=== PATIENT | female | born 1960 | race Two or more races ===

== ENCOUNTER 2019-11-18 16:27 | Emergency (ER) | payer MEDICARE ==
[~2019-11-18] VITALS: Ht 165.1 cm; Wt 108.9 kg
[2019-11-18 16:45] VITALS: BP 156/68
[2019-11-18] MEDS ORDERED: BENZONATATE 100 MG CAPSULE. PO ONE (16:45)
[2019-11-18] MEDS ORDERED: predniSONE 10 MG TABLET PO ONE (16:45)
--- NOTE | 2019-11-18 17:02 | RAD ---
EXAM: Chest, 2 views. HISTORY: Fever. Cough. COMPARISON: 06/15/2015. FINDINGS: 2 views of the chest are obtained. There is suspected bilateral infrahilar atelectasis. There is no consolidation, pleural effusion or pneumothorax. The heart is normal in size. IMPRESSION: Suspected bilateral infrahilar atelectasis. Electronically signed by: Liliana Henry MD (11/18/2019 4:59 PM) [place] [id number]
[2019-11-18 17:15] LABS: INFLUENZA A PATIENT NEGATIVE (NEGATIVE); INFLUENZA B PATIENT NEGATIVE (NEGATIVE)
[2019-11-18] MEDS ORDERED: IPRATRPIUM/ALBUTEROL 0.5/2.5MG 3 ML NEBU. NEB ONE (17:45)
[2019-11-18] MEDS ORDERED: BENZ100C PO (19:19)
[2019-11-18] MEDS ORDERED: PRED50TA PO (19:19)
[2019-11-18] MEDS ORDERED: ALBU2.5V8 IH (19:19)
--- NOTE | 2019-11-18 19:19 | PHYS DOC ---
Past Medical History Past Medical History: Depression, Diabetes-Type II, High Cholesterol, Hyp ertension, Kidney Stone (BABS HWANG APRN) Past Surgical History: Hysterectomy (BABS HWANG APRN) Alcohol Use: None Drug Use: None (BABS HWANG APRN) Attending Signature I have participated in the care of this patient and I have reviewed and agree with all pertinent clinical information above including history, exam, and recommendations. (DEBBI RODRIGUEZ MD) Adult General Chief Complaint Chief Complaint: FEVER HPI HPI Patient is a 59 year old female who presents to the ED today complaining of intermittent episodes of fever, productive cough, body aches and chills as well as headache for the last 2 weeks. Patient states she was seen at [facility] 2 weeks ago and was given some medications which improved her symptoms. She reports when the medications were finished her symptoms returned. Patient denies any chest pain. Denies any shortness of breath. (BABS HWANG APRN) Review of Systems Review of Systems Constitutional: Reports body aches and chills Eyes: Denies change in visual acuity, redness, or eye pain [] HENT: Denies nasal congestion or sore throat [] Respiratory: Reports cough, denies shortness of breath [] Cardiovascular: No additional information not addressed in HPI [] GI: Denies abdominal pain, nausea, vomiting, bloody stools or diarrhea [] : Denies dysuria or hematuria [] Musculoskeletal: Denies back pain or joint pain [] Integument: Denies rash or skin lesions [] Neurologic: Reports headaches, denies, focal weakness or sensory changes [] All other systems were reviewed and found to be within normal limits, except as documented in this note. (BABS HWANG APRN) Current Medications Current Medications Current Medications Medications (Trade) Dose Ordered Sig/Nito Start Time Stop Time Status Last Admin Dose Admin Albuterol/ Ipratropium (Duoneb) 3 ml 1X ONCE 11/18/19 17:45 11/18/19 17:46 DC 11/18/19 17:56 3 ML Benzonatate (Tessalon Perle) 100 mg 1X ONCE 11/18/19 16:45 11/18/19 17:01 DC 11/18/19 17:05 100 MG Prednisone (Prednisone) 50 mg 1X ONCE 11/18/19 16:45 11/18/19 17:01 DC 11/18/19 17:05 50 MG (DEBBI RODRIGUEZ MD) Allergies Allergies Allergies Coded Allergies Type Severity Reaction Last Updated Verified No Known Drug Allergies 11/18/19 No (DEBBI RODRIGUEZ MD) Physical Exam Physical Exam Constitutional: Well developed, well nourished, no acute distress, non-toxic appearance. [] HENT: Normocephalic, atraumatic, bilateral external ears normal, oropharynx moist, no oral exudates, nose normal. [] Eyes: PERRLA, EOMI, conjunctiva normal, no discharge. [] Neck: Normal range of motion, no tenderness, supple, no stridor. [] Cardiovascular:Heart rate regular rhythm, no murmur [] Lungs & Thorax: Bilateral breath sounds clear to auscultation [] Abdomen: Bowel sounds normal, soft, no tenderness, no masses, no pulsatile masses. [] Skin: Warm, dry, no erythema, no rash. [] Back: No tenderness, no CVA tenderness. [] Extremities: No tenderness, no cyanosis, no clubbing, ROM intact, no edema. [] Neurologic: Alert and oriented X 3, normal motor function, normal sensory function, no focal deficits noted. [] Psychologic: Affect normal, judgement normal, mood normal. [] (BABS HWANG APRN) Current Patient Data Vital Signs Vital Signs Date Time Temp Pulse Resp B/P (MAP) Pulse Ox O2 Delivery O2 Flow Rate FiO2 11/18/19 17:57 92 Room Air 11/18/19 16:45 100.0 85 21 156/68 (97) 100.0 (DEBBI RODRIGUEZ MD) Lab Values Laboratory Tests Test 11/18/19 16:35 Influenza Type A Antigen Negative (NEGATIVE) Influenza Type B Antigen Negative (NEGATIVE) (DEBBI RODRIGUEZ MD) EKG EKG [] (BABS HWANG APRN) Radiology/Procedures Radiology/Procedures []PROCEDURE: CHEST PA & LATERAL EXAM: Chest, 2 views. HISTORY: Fever. Cough. COMPARISON: 06/15/2015. FINDINGS: 2 views of the chest are obtained. There is suspected bilateral infrahilar atelectasis. There is no consolidation, pleural effusion or pneumothorax. The heart is normal in size. IMPRESSION: Suspected bilateral infrahilar atelectasis. Electronically signed by: Liliana Lomeli MD (11/18/2019 4:59 PM) [place] [id number] DICTATED and SIGNED BY: LILIANA LOMELI MD DATE: 11/18/191658 (BABS HWANG APRN) Course & Med Decision Making Course & Med Decision Making Pertinent Labs and Imaging studies reviewed. (See chart for details) This is a 59-year-old female patient presenting with intermittent episodes of headaches, body aches, chills, fevers, cough. The symptoms for 2 weeks. Was seen at [facility] for same symptoms, was given medications she can't remember but it sounds like an antibiotics was administered. She reports symptoms had improved but returned a couple days ago. Temperature 100.0 on arrival, influenza test is negative, chest x-ray is negative. Patient was given a DuoNeb treatment, prednisone and Tessalon Perles. Feeling better. Discharged to home with the same medications. (BABS HWANG APRN) Dragon Disclaimer Dragon Disclaimer This electronic medical record was generated, in whole or in part, using a voice recognition dictation system. (BABS HWANG APRN) Departure Departure Impression: Primary Impression: Acute bronchitis Additional Impressions: Fever URI (upper respiratory infection) Disposition: 01 HOME, SELF-CARE Condition: STABLE Referrals: UNKNOWN PCP NAME (PCP) follow up with your doctor in 1-2 weeks Patient Instructions: Acute Bronchitis, Fever, Adult, [id number], Upper Respiratory Infection, Adult, [id number] Additional Instructions: You were evaluated in the emergency room with symptoms consistent of bronchitis and an upper respiratory infection. Take the prescribed medications as ordered. Follow-up with your own doctor in the next 1-2 weeks. Come back to the ED at any point symptoms worsen. Take tylenol/ibuprofen for fever or pain Scripts Albuterol Sulfate (Proair Hfa) 8.5 Gm Hfa.aer.ad 1 PUFF IH PRN Q4-6HRS PRN for wheezing for 21 Days, #1 INHALER 0 Refills Prov: BABS HWANG APRN 11/18/19 Benzonatate (TESSALON PERLE) 100 Mg Capsule 1 CAP PO TID, #30 CAP Prov: BABS HWANG APRN 11/18/19 Prednisone (PREDNISONE) 50 Mg Tablet 1 TAB PO DAILY, #5 TAB Prov: ERIBABS NUNN 11/18/19 Problem Qualifiers Primary Impression: Acute bronchitis Bronchitis organism: unspecified organism Qualified Codes: J20.9 - Acute bronchitis, unspecified Additional Impressions: Fever Fever type: unspecified Qualified Codes: R50.9 - Fever, unspecified URI (upper respiratory infection) URI type: unspecified URI Qualified Codes: J06.9 - Acute upper respiratory infection, unspecified BABS HWANG APRN Nov 18, 2019 19:19 DEBBI RODRIGUEZ MD Nov 19, 2019 02:17
== END 2019-11-18 19:42 | disposition home or self-care (01) ==
LOC: ER 16:27
DX: J20.9 Acute bronchitis, unspecified (principal); J06.9 Acute upper respiratory infection, unspecified; E11.9 Type 2 diabetes mellitus without complications; E78.00 Pure hypercholesterolemia, unspecified; I10 Essential (primary) hypertension
CPT/HCPCS: 71046; 87804; 94640; 99285; J7512; J7620